=== PATIENT | male | born 1980 | race Caucasian/White ===

== ENCOUNTER 2021-12-07 04:17 | Emergency (ER) | payer OTHER ==
[~2021-12-07] VITALS: Ht 175.3 cm; Wt 95.5 kg
[~2021-12-07 04:17] MED LIST: ALBU8.5H4 IH; CITA20TA28 PO; GLUC100017 PO; LOP25T PO
[2021-12-07 04:25] VITALS: BP 169/113
== END 2021-12-07 18:50 | disposition left against medical advice (07) ==
LOC: ER 04:18
DX: M79.645 Pain in left finger(s) (principal); Z53.21 Procedure and treatment not carried out due to patient leaving prior to being seen by health care provider
CPT/HCPCS: 73140

== ENCOUNTER 2022-09-18 08:56 | Emergency (ER) | payer MEDICAID, OTHER ==
[~2022-09-18] VITALS: Ht 180.3 cm; Wt 97.0 kg
[2022-09-18 09:00] VITALS: BP 147/118; PULSE 103; RESP 16; TEMP 98.7; O2SAT 98
[2022-09-18] MEDS ORDERED: ondansetron/PF 4mg/2ml inj IV ONE (09:10)
[2022-09-18] MEDS ORDERED: normal saline 1000ML IV soln IVB ONE (09:10)
[2022-09-18 09:24] LABS: BASOPHILS # (AUTO) 0.1 X10'3 (0-0.2); EOSINOPHILS # (AUTO) 0.1 X10'3 (0-0.9); EOSINOPHILS % (AUTO) 1.8 % (0-6); HEMATOCRIT 51.7 % (42.0-52.0); HEMOGLOBIN 17.9 g/dl (14.0-17.9); LYMPHOCYTES # (AUTO) 2.4 X10'3 (1.1-4.8); MEAN CORPUSCULAR HEMOGLOBIN 30.9 PG (27.0-31.0); MEAN CORPUSCULAR HGB CONC 34.6 g/dL (33.0-36.5); MEAN CORPUSCULAR VOLUME 89.2 FL (78-98); MEAN PLATELET VOLUME 6.7 FL (7.4-10.4); MONOCYTES # (AUTO) 0.5 X10'3 (0-0.9); MONOCYTES % (AUTO) 8.5 % (2-12); NEUTROPHILS # (AUTO) 2.8 X10'3 (1.8-7.7); NEUTROPHILS % (AUTO) 47.7 % (42-75); PLATELET COUNT 312 X10'3 (140-440); RED CELL DISTRIBUTION WIDTH 12.9 % (11.5-14.5); WHITE BLOOD COUNT 5.8 X10'3 (4.5-11.0)
[2022-09-18 09:49] LABS: ALANINE AMINOTRANSFERASE 61 U/L (12-78); ALBUMIN 3.8 G/DL (3.4-5.0); ALBUMIN/GLOBULIN RATIO 0.9 (1.1-1.5); ALKALINE PHOSPHATASE 66 IU/L (46-116); ANION GAP 14 (8-16); ASPARTATE AMINO TRANSFERASE 27 U/L (10-37); BILIRUBIN,TOTAL 0.7 MG/DL (0.1-1.0); BLOOD UREA NITROGEN 11 MG/DL (7-18); BUN/CREATININE RATIO 8.9 (10.0-20.0); CALCIUM 9.1 MG/DL (8.5-10.1); CHLORIDE 100 MMOL/L (99-107); CREATININE 1.23 MG/DL (0.60-1.10); GLUCOSE 124 MG/DL (70-104); LIPASE 70 U/L (73-393); POTASSIUM 3.3 MMOL/L (3.5-5.1); SODIUM 135 MMOL/L (135-145); TOTAL CARBON DIOXIDE 20.6 MMOL/L (24-32); TOTAL PROTEIN 7.9 G/DL (6.4-8.2); eGFR 64 ML/MIN
[2022-09-18] MEDS ORDERED: POTASSIUM BICARB 20meq eff tab 20 MEQ TABLET.EFF PO STA (09:51)
[2022-09-18] MEDS ORDERED: magnesium Cl slow-release 64mg tablet PO STA (09:51)
[2022-09-18] MEDS ORDERED: normal saline 1000ml 1,000 ML IV ONE (09:55)
[2022-09-18] MEDS ORDERED: ONDA4TAB12 PO (10:22)
== END 2022-09-18 11:34 | disposition home or self-care (01) ==
LOC: ER 08:56
DX: A08.4 Viral intestinal infection, unspecified (principal); E86.0 Dehydration; E87.6 Hypokalemia; Z72.89 Other problems related to lifestyle; Z79.899 Other long term (current) drug therapy
CPT/HCPCS: 36415; 80053; 83690; 85025; 96374; 99283; J2405; J7030